=== PATIENT | female | born 1990 | race Caucasian/White ===

== ENCOUNTER 2017-12-01 17:47 | Emergency (ER) | payer MEDICAID ==
[2017-12-01] MEDS ORDERED: NS 1,000 ML IV ONE (18:14)
--- NOTE | 2017-12-01 18:18 | EDPHY ---
H & P Smoking Status: Never smoked Time Seen by Provider: 12/01/17 18:05 HPI/ROS: CHIEF COMPLAINT: Overdose HISTORY OF PRESENT ILLNESS: Patient is a 19-year-old female with a history of depression that presents to the emergency department after an overdose. Patient states she has a history of significant anxiety. She recently started a new job. She was feeling anxious about going to work so she took some medicine. When she was not feeling any better she felt depressed I had thoughts of harming herself. She states"I really did want to ."Patient has 1 previous suicide attempt when she was 16 by overdosing on Tylenol. Today the patient took Ativan 3 mg total. She also take 200 mg tramadol. She drink alcohol. Her partner her talking to a friend, and brought her to the emergency department. The patient denies fevers or chills. No chest pain or abdominal pain. No shortness of breath REVIEW OF SYSTEMS: My complete review of systems is negative except as mentioned in the HPI. ( Lissett Razo) Past Medical/Surgical History: Includes depression, anxiety Past surgical history: Negative Social history: Patient denies smoking. She is not using the THC. She used alcohol today. (Lissett Razo) Physical Exam: 37.2, 136/102, 118, 20, 98% on room air GENERAL: Intoxicated appearing, in no acute distress, alert. HEENT: Eyes normal to inspection, normal pharynx, no signs of dehydration. Horizontal nystagmus NECK: No thyromegaly, no lymphadenopathy, supple. RESPIRATORY: Clear to auscultation bilaterally, no rales, rhonchi or wheezing. CVS: Regular rate and rhythm, no rubs, murmurs, or gallops. ABDOMEN: Soft, nontender, nondistended, no organomegaly. BACK: Normal to inspection, no CVA tenderness. SKIN: Normal color, no rash, warm, dry. No pallor. EXTREMITIES: No pedal edema, no calf tenderness, no Homans sign or cords, no joint swelling. NEURO/PSYCH: Alert and oriented x3, intoxicated, normal motor sensory exam. No obvious cranial nerve deficit. (Lissett Razo) Constitutional: Initial Vital Signs Temperature (C) 37.2 C 12/01/17 17:51 Heart Rate 118 H 12/01/17 17:51 Respiratory Rate 20 04/25/18 17:51 Blood Pressure 136/102 H 12/01/17 17:51 O2 Sat (%) 94 12/01/17 17:51 O2 Delivery Mode Room Air Allergies/Adverse Reactions: No Known Allergies Allergy (Unverified 12/01/17 17:50) Home Medications: Medication Instructions Recorded Buspar (*) 12/01/17 Doxepin HCl 12/01/17 LORAZEPAM 12/01/17 Latuda 12/01/17 Lexapro 12/01/17 traMADol 12/01/17 Medical Decision Making ED Course/Re-evaluation: In the emergency department I discussed possible etiologies of the plan with the patient. I answered all her questions. IV was placed. Laboratory studies were obtained. Psychiatric Services were contacted. The patient was given normal saline 1 L IV for hydration. Patient was placed on a mental health hold. Reviewed the patient's laboratory studies. CBC and chemistry were unremarkable. Patient's tox screen was positive for benzodiazepines. Tylenol and aspirin were negative. Alcohol was 202. Psychiatric Services will be called once the patient's alcohol level drops. 2300: Patient is signed out at change of shift to Dr. Bartlett. Pt is awaiting evaluation. (Lissett Razo) Differential Diagnosis: My differential includes but is not limited to anxiety, depression, alcohol intoxication, overdose, suicidal ideation (Lissett Razo) Other Provider: 2300 care assumed by me from Dr. Razo pending mental health evaluation. 0145 patient seen by the mental health automatic packer operator. Patient states that she is not feeling suicidal. She knows that the amount of medications she took was not enough to kill her. She is ruma for safety at this time. She does have local resources including [facility] available to her. She has her boyfriend here will be able to stay with her. Does not meet criteria at this time. She mental health automatic packer operator is recommending discharged at think this is appropriate. I vacated a mental health hold. (Carlos Manuel Bartlett) - Data Points Laboratory Results: Laboratory Results 12/01/17 18:14 12/01/17 18:14 12/01/17 12/01/17 12/01/17 18:31 18:14 18:14 WBC RBC Hgb Hct MCV MCH MCHC RDW Plt Count MPV Neut % (Auto) Lymph % (Auto) [place] % (Auto) Eos % (Auto) Baso % (Auto) Nucleat RBC Rel Count Absolute Neuts (auto) Absolute Lymphs (auto) Absolute Monos (auto) Absolute Eos (auto) Absolute Basos (auto) Absolute Nucleated RBC Immature Gran % Immature Gran # Sodium 144 mEq/L mEq/L (135-145) Potassium 4.3 mEq/L mEq/L (3.5-5.2) Chloride 107 mEq/L mEq/L (97-110) Carbon Dioxide 21 mEq/l L mEq/l (22-31) Anion Gap 16 mEq/L mEq/L (8-16) BUN 9 mg/dL mg/dL (7-23) Creatinine 0.9 mg/dL mg/dL (0.6-1.0) Estimated GFR > 60 Glucose 112 mg/dL H mg/dL (70-100) Calcium 9.3 mg/dL mg/dL (8.5-10.4) Beta HCG, Qual NEGATIVE Salicylates < 1.0 mg/dL L mg/dL (2.0-20.0) Urine Opiates Screen NEGATIVE (NEGATIVE) Acetaminophen < 10 mcg/mL L mcg/mL (10-30) Urine Barbiturates NEGATIVE (NEGATIVE) Ur Phencyclidine Scrn NEGATIVE (NEGATIVE) Ur Amphetamine Screen NEGATIVE (NEGATIVE) U Benzodiazepines Scrn NON-NEGATIVE H (NEGATIVE) Urine Cocaine Screen NEGATIVE (NEGATIVE) U Marijuana (THC) Screen NEGATIVE (NEGATIVE) Ethyl Alcohol 202 mg/dL H mg/dL (0-10) 12/01/17 18:14 WBC 6.06 10^3/uL 10^3/uL (3.80-9.50) RBC 5.08 10^6/uL 10^6/uL (4.18-5.33) Hgb 15.6 g/dL g/dL (12.6-16.3) Hct 45.2 % % (38.0-47.0) MCV 89.0 fL fL (81.5-99.8) MCH 30.7 pg pg (27.9-34.1) MCHC 34.5 g/dL g/dL (32.4-36.7) RDW 11.7 % % (11.5-15.2) Plt Count 306 10^3/uL 10^3/uL (150-400) MPV 8.8 fL fL (8.7-11.7) Neut % (Auto) 60.9 % % (39.3-74.2) Lymph % (Auto) 29.2 % % (15.0-45.0) [place] % (Auto) 5.9 % % (4.5-13.0) Eos % (Auto) 2.8 % % (0.6-7.6) Baso % (Auto) 0.7 % % (0.3-1.7) Nucleat RBC Rel Count 0.0 % % (0.0-0.2) Absolute Neuts (auto) 3.69 10^3/uL 10^3/uL (1.70-6.50) Absolute Lymphs (auto) 1.77 10^3/uL 10^3/uL (1.00-3.00) Absolute Monos (auto) 0.36 10^3/uL 10^3/uL (0.30-0.80) Absolute Eos (auto) 0.17 10^3/uL 10^3/uL (0.03-0.40) Absolute Basos (auto) 0.04 10^3/uL 10^3/uL (0.02-0.10) Absolute Nucleated RBC 0.00 10^3/uL 10^3/uL (0-0.01) Immature Gran % 0.5 % % (0.0-1.1) Immature Gran # 0.03 10^3/uL 10^3/uL (0.00-0.10) Sodium Potassium Chloride Carbon Dioxide Anion Gap BUN Creatinine Estimated GFR Glucose Calcium Beta HCG, Qual Salicylates Urine Opiates Screen Acetaminophen Urine Barbiturates Ur Phencyclidine Scrn Ur Amphetamine Screen U Benzodiazepines Scrn Urine Cocaine Screen U Marijuana (THC) Screen Ethyl Alcohol Medications Given: Discontinued Medications Sodium Chloride (Ns) 1,000 mls @ 0 mls/hr IV ONCE ONE PRN Reason: Wide Open Stop: 12/01/17 18:15 Last Admin: 12/01/17 18:21 Dose: 1,000 mls Departure - Departure Disposition: Home, Routine, Self-Care Clinical Impression: Polypharmacy Alcoholic intoxication Qualifiers: Complication of substance-induced condition: uncomplicated Qualified Code(s): F10.920 - Alcohol use, unspecified with intoxication, uncomplicated Condition: Good Instructions: Alcohol Intoxication (ED) Additional Instructions: Follow up with [facility] in 2-3 days for further treatment of your depression and anxiety. Return to the emergency department for worsening depression, thoughts of harming yourself or others, worsening anxiety, hopelessness, or any other concerns. Referrals: JUAN LUIS FIGUEREDO [Other] - 1-2 days without fail [facility] [Outside] - As per Instructions Stand Alone Forms: Work Excuse
[2017-12-01 18:38] LABS: PLATELET COUNT 306 10^3/uL (150-400)
[2017-12-02 02:06] VITALS: BP 122/93
== END 2017-12-02 02:17 | disposition home or self-care (01) ==
DX: T39.1X1A Poisoning by 4-Aminophenol derivatives, accidental (unintentional), initial encounter (principal); T42.4X1A Poisoning by benzodiazepines, accidental (unintentional), initial encounter; T40.4X1A Poisoning by other synthetic narcotics, accidental (unintentional), initial encounter; F10.920 Alcohol use, unspecified with intoxication, uncomplicated
CPT/HCPCS: 80305; G0480